=== PATIENT | male | born 1985 | race Caucasian/White ===

== ENCOUNTER 2017-01-29 01:36 | Emergency (ER) | payer OTHER, MEDICAID ==
[~2017-01-29] VITALS: Ht 175.3 cm; Wt 82.0 kg
[2017-01-29] MEDS ORDERED: ONDANSETRON 4MG ODT PO ONE (03:00)
[2017-01-29] MEDS ORDERED: KETOROLAC 30MG/ML VIAL IV ONE (03:00)
[2017-01-29] MEDS ORDERED: KETOROLAC 30MG/ML VIAL IM ONE (03:30)
[2017-01-29 03:44] VITALS: BP 137/73
[2017-01-29] MEDS ORDERED: HYDROCODONE/ACETAMINOPHEN 5/325MG TABLET PO ONE (04:00)
== END 2017-01-30 07:55 | disposition home or self-care (01) ==
LOC: ER 01:36
DX: M54.30 Sciatica, unspecified side (principal); F17.200 Nicotine dependence, unspecified, uncomplicated; F12.10 Cannabis abuse, uncomplicated
CPT/HCPCS: 96372; 96374; 99284; J1885; Q0162